=== PATIENT | male | born 1980 | race Caucasian/White ===

== ENCOUNTER 2016-12-17 21:29 | Emergency (ER) | payer OTHER ==
[~2016-12-17] VITALS: Ht 180.3 cm; Wt 89.4 kg
[2016-12-17] MEDS ORDERED: FAMOTIDINE 20 MG TABLET PO ONE (22:15)
[2016-12-17] MEDS ORDERED: ONDANSETRON ODT 4 MG TAB.RAPDIS PO ONE (22:15)
[2016-12-17] MEDS ORDERED: LIDO:MAALOX 1:1 20 ML SINGLE DOSE PO ONE (22:15)
[2016-12-17] MEDS ORDERED: IOHEXOL 300 MG/ML 75 ML VIAL. IV ONE (22:45)
[2016-12-17] MEDS ORDERED: CONTRAST GIVEN MC PRN (22:45)
[2016-12-17] MEDS ORDERED: fentaNYL PF 100 MCG/2 ML VIAL IV ONE (22:45)
[2016-12-17 23:12] LABS: HEMATOCRIT 45.8 % (39.0-53.0); HEMOGLOBIN 15.5 g/dL (13.0-17.5); MEAN CORPUSCULAR HEMOGLOBIN 31 pg (25-35); MEAN CORPUSCULAR HGB CONC 34 g/dL (31-37); MEAN CORPUSCULAR VOLUME 91 fL (79-100); PLATELET COUNT 254 x10^3/uL (140-400); RED BLOOD COUNT 5.06 x10^6/uL (4.30-5.70); RED CELL DISTRIBUTION WIDTH 13.3 % (11.5-14.5); WHITE BLOOD COUNT 11.9 x10^3/uL (4.0-11.0)
[2016-12-17 23:13] LABS: BASO % 0 % (0-3); EOS % 0 % (0-3); LYMPH # 1.2 x10^3/uL (1.0-4.8); LYMPH % 10 % (24-48); MONO # 0.7 x10^3/uL (0.0-1.1); MONO % 6 % (0-9); NEUT # 10.1 x10^3uL (1.8-7.7); NEUT % 84 % (31-73)
[2016-12-17 23:22] LABS: ALBUMIN 4.4 g/dL (3.4-5.0); ALBUMIN/GLOBULIN RATIO 1.2 (1.0-1.7); CALCIUM 9.1 mg/dL (8.5-10.1); GFR 84.5; POTASSIUM 4.7 mmol/L (3.5-5.1); TOTAL BILIRUBIN 2.5 mg/dL (0.2-1.0); TOTAL PROTEIN 8.1 g/dL (6.4-8.2)
[2016-12-18] MEDS ORDERED: IV NORMAL SALINE 1,000ML 1,000 ML IV ONE
[2016-12-18] MEDS ORDERED: MORPHINE SULFATE 4 MG/ML DISP.SYRIN. IV ONE
--- NOTE | 2016-12-18 00:29 | RAD ---
CT abdomen and pelvis with contrast HISTORY: Abdominal pain, nausea and vomiting. Epigastric pain. TECHNIQUE: Helical CT imaging of the abdomen and pelvis with 75 mL Omnipaque 300 intravenous contrast. Abdomen findings: Gallbladder wall is hypervascular and there is likely mild edema or fluid surrounding the gallbladder wall suggestive of inflammation. Posterior spleen 3 cm hypodense cyst density 5 units. Kidneys, adrenals, liver, spleen unremarkable. The pancreas has mildly enlarged and lobular. There is mild stranding about the pancreas body and head. Mild segmental distention with fluid of the proximal small bowel and collapse of the distal small bowel without discrete focal transition point. Appendix is negative. No adenopathy. Lung bases and bones are unremarkable. Pelvis findings: Bladder, prostate, rectum and bones are unremarkable. No fluid or adenopathy. IMPRESSION: 1. Mild enlargement of the pancreas head, and edema surrounding the pancreas head and body. This is likely pancreatitis. Enlargement of the pancreas head could be due to inflammation. Ill-defined pancreas head mass cannot be excluded although no ductal dilation is evident. 2. Edema and hypervascular enhancement of the gallbladder wall, cholecystitis is not excluded. 3. The appendix is negative. 4. Mild fluid distention of the proximal small bowel could be indicative of mild ileus. A low-grade partial small bowel obstruction would be a secondary consideration. Exposure: One or more of the following individualized dose reduction techniques were utilized for this examination: 1. Automated exposure control 2. Adjustment of the mA and/or kV according to patient size 3. Use of iterative reconstruction technique Electronically signed by: Nelson Allen MD (12/18/2016 12:26 AM) [facility]
[2016-12-18] MEDS ORDERED: PIPERACILLIN/TAZOBACTAM 3.375 GM in IV NORMAL SALINE 50ML 50 ML IV ONE (01:00)
[2016-12-18] MEDS ORDERED: PIPERACILLIN/TAZOBACTAM 3.375 GM VIAL IV ONE (01:25)
[2016-12-18] MEDS ORDERED: IV NORMAL SALINE 50ML 50 ML ONE (01:25)
[2016-12-18 01:30] VITALS: BP 138/86
--- NOTE | 2016-12-21 07:27 | ED.ADGEN ---
Past History Past Medical History: Other Past Surgical History: No Surgical History Alcohol Use: None Drug Use: None Adult General Chief Complaint Chief Complaint Abdominal pain, nausea vomiting HPI HPI Patient is a 36-year-old male who presents with persistent epigastric pain radiating to back, with nausea and vomiting starting yesterday. It is described as dull, rated it as severe, and is continuous for several hours. Patient is unable to find position of comfort or relief. Pain is worse with palpation but not movement. Patient states symptoms began after eating a large meal and feels similar but more severe than his typical acid reflux symptoms. Patient has taken various [id number] medications with out relief. Denies hematemesis or bilious emesis. Denies constipation diarrhea bloody stools or melena. Denies dizziness lightheadedness, chest pain, shortness of breath. No fevers chills or sweats. No other acute symptoms or complaints. No prior abdominal surgeries. Family history reviewed and noncontributory. Patient is a nonsmoker and consumes occasional alcohol. Patient is attending a local college and is visiting from [place] of state. Review of Systems Review of Systems ROS as per HPI. Current Medications Current Medications Current Medications Medications (Trade) Dose Ordered Sig/Sharri Start Time Stop Time Status Last Admin Dose Admin Famotidine (Pepcid) 20 mg 1X ONCE 12/17/16 22:15 12/17/16 22:16 DC 12/17/16 22:11 20 MG Fentanyl Citrate (Fentanyl 2ml Vial) 50 mcg 1X ONCE 12/17/16 22:45 12/17/16 22:46 DC 12/17/16 22:45 50 MCG Info (Do NOT chart on this entry -- for MONITORING) 1 each PRN DAILY PRN 12/17/16 22:45 12/18/16 01:45 DC Iohexol (Omnipaque 300 Mg/ml) 75 ml 1X ONCE 12/17/16 22:45 12/17/16 22:46 DC 12/17/16 22:58 75 ML Morphine Sulfate (Morphine 4mg Syringe) 4 mg 1X ONCE 12/18/16 00:00 12/18/16 00:50 DC 12/18/16 00:00 4 MG Multi-Ingredient Mouthwash/Gargle (Gi Cocktail) 20 ml 1X ONCE 12/17/16 22:15 12/17/16 22:16 DC 12/17/16 22:15 20 ML Ondansetron HCl (Zofran Odt) 4 mg 1X ONCE 12/17/16 22:15 12/17/16 22:16 DC 12/17/16 22:11 4 MG Piperacillin Sod/ Tazobactam Sod (Zosyn) 3.375 gm STK-MED ONCE 12/18/16 01:25 12/18/16 01:26 DC Piperacillin Sod/ Tazobactam Sod 3.375 gm/Sodium Chloride 50 ml @ 100 mls/hr 1X ONCE 12/18/16 01:00 12/18/16 01:29 DC 12/18/16 01:00 100 MLS/HR Sodium Chloride 50 ml @ As Directed STK-MED ONCE 12/18/16 01:25 12/18/16 01:26 DC Allergies Allergies Allergies Coded Allergies Type Severity Reaction Last Updated Verified No Known Drug Allergies 12/17/16 No Physical Exam Physical Exam Constitutional: Well developed, well nourished, moderate discomfort secondary to pain. [] HENT: Normocephalic, atraumatic, bilateral external ears normal, oropharynx moist, no oral exudates, nose normal. [] Eyes: PERRLA, EOMI, conjunctiva normal, no discharge. [] Neck: Normal range of motion, no tenderness, supple, no stridor. [] Cardiovascular:Heart rate regular rhythm, no murmur [] Lungs & Thorax: Bilateral breath sounds clear to auscultation [] Abdomen: Bowel sounds normal, soft, nondistended, normal bowel sounds, severe epigastric/left upper quadrant pain, tenderness with voluntary guarding, negative Alberto signs. [] Skin: Warm, dry, no erythema, no rash. [] Back: No tenderness, no CVA tenderness. [] Extremities: No tenderness, no cyanosis, no clubbing, ROM intact, no edema. [] Neurologic: Alert and oriented X 3, normal motor function, normal sensory function, no focal deficits noted. [] Psychologic: Affect normal, judgement normal, mood normal. [] Current Patient Data Vital Signs Vital Signs Date Time Temp Pulse Resp B/P (MAP) Pulse Ox O2 Delivery O2 Flow Rate FiO2 12/18/16 01:30 98.3 68 20 138/86 (103) 98 12/17/16 22:45 Room Air Lab Results Laboratory Tests Test 12/17/16 22:40 White Blood Count 11.9 x10^3/uL (4.0-11.0) H Red Blood Count 5.06 x10^6/uL (4.30-5.70) Hemoglobin 15.5 g/dL (13.0-17.5) Hematocrit 45.8 % (39.0-53.0) Mean Corpuscular Volume 91 fL (79-100) Mean Corpuscular Hemoglobin 31 pg (25-35) Mean Corpuscular Hemoglobin Concent 34 g/dL (31-37) Red Cell Distribution Width 13.3 % (11.5-14.5) Platelet Count 254 x10^3/uL (140-400) Neutrophils (%) (Auto) 84 % (31-73) H Lymphocytes (%) (Auto) 10 % (24-48) L Monocytes (%) (Auto) 6 % (0-9) Eosinophils (%) (Auto) 0 % (0-3) Basophils (%) (Auto) 0 % (0-3) Neutrophils # (Auto) 10.1 x10^3uL (1.8-7.7) H Lymphocytes # (Auto) 1.2 x10^3/uL (1.0-4.8) Monocytes # (Auto) 0.7 x10^3/uL (0.0-1.1) Eosinophils # (Auto) 0.0 x10^3/uL (0.0-0.7) Basophils # (Auto) 0.0 x10^3/uL (0.0-0.2) Sodium Level 138 mmol/L (136-145) Potassium Level 4.7 mmol/L (3.5-5.1) Chloride Level 99 mmol/L (98-107) Carbon Dioxide Level 30 mmol/L (21-32) Anion Gap 9 (6-14) Blood Urea Nitrogen 11 mg/dL (8-26) Creatinine 1.0 mg/dL (0.7-1.3) Estimated GFR (Cockcroft-Gault) 84.5 BUN/Creatinine Ratio 11 (6-20) Glucose Level 113 mg/dL (70-99) H Calcium Level 9.1 mg/dL (8.5-10.1) Total Bilirubin 2.5 mg/dL (0.2-1.0) H Aspartate Amino Transferase (AST) 528 U/L (15-37) H Alanine Aminotransferase (ALT) 893 U/L (16-63) H Alkaline Phosphatase 207 U/L (46-116) H Total Protein 8.1 g/dL (6.4-8.2) Albumin 4.4 g/dL (3.4-5.0) Albumin/Globulin Ratio 1.2 (1.0-1.7) Lipase 81578 U/L (73-393) H EKG EKG [] Radiology/Procedures Radiology/Procedures [CT abdomen pelvis: Findings system with cholecystitis and pancreatitis per radiology report] Course & Med Decision Making Course & Med Decision Making Pertinent Labs and Imaging studies reviewed. (See chart for details) [Patient with likely gallstone pancreatitis. IV fluids antibiotics given. Patient transfer to [facility] for due to lack of local GI physician specialty coverage. accepts care of patient.] Final Impression Final Impression [1. Abdominal Pain 2. Gallstone Pancreatis. ] Problems: Dragon Disclaimer Dragon Disclaimer This electronic medical record was generated, in whole or in part, using a voice recognition dictation system. TANYA MCDANIEL DO Dec 21, 2016 07:27
== END 2016-12-18 01:45 | disposition short-term general hospital (02) ==
LOC: ER 21:29
DX: K80.20 Calculus of gallbladder without cholecystitis without obstruction (principal); K85.90 Acute pancreatitis without necrosis or infection, unspecified
CPT/HCPCS: 36415; 74177; 80053; 83690; 85027; 96361; 96365; 96375; 99285; J2270; J2543; J3010; Q0162; Q9967; J7030